=== PATIENT | male | born 1960 | race Caucasian/White ===

== ENCOUNTER 2018-02-28 09:23 | Day surgery (SDC) | payer OTHER ==
[~2018-02-28 09:23] MED LIST: CEFAZOLIN 2 GM/50 ML (PMX) 50 ML IVPB; SOD CHLORIDE 0.9% 1,000 ML IV
[2018-02-28] MEDS ORDERED: DIPHENHYDRAMINE 50 MG INJ IV (11:00)
[2018-02-28] MEDS ORDERED: MIDAZOLAM 1 MG/ML 2 ML INJ IV (11:00)
[2018-02-28] MEDS ORDERED: EPHEDrine SULFATE 50 MG/5 ML SYG IV (11:00)
[2018-02-28] MEDS ORDERED: IPRATROPIUM (NEB) 0.5 MG/2.5 ML AMP HHN (11:00)
[2018-02-28] MEDS ORDERED: MEPERIDINE 25 MG INJ IV (11:00)
[2018-02-28] MEDS ORDERED: OXYCODONE/ACETAMINOPHEN (5/325) TAB PO ×2 (11:00)
[2018-02-28] MEDS ORDERED: hydrALAzine 20 MG INJ IV (11:00)
[2018-02-28] MEDS ORDERED: FENTAnyl 50 MCG/ML VIAL IV ×3 (11:00)
[2018-02-28] MEDS ORDERED: LABETALOL HCL 20MG INJ IV (11:00)
[2018-02-28] MEDS ORDERED: ALBUTEROL 0.083% (NEB) 2.5 MG/3 ML AMP HHN (11:00)
[2018-02-28] MEDS ORDERED: TRIMETHOBENZAMIDE 100 MG/ML VIAL IM (11:00)
[2018-02-28] MEDS ORDERED: HYDROmorphONE 1 MG/5 ML IV SYRINGE IV (11:00)
[2018-02-28] MEDS ORDERED: CEFAZOLIN 1 GM INJ (11:23)
[2018-02-28] MEDS ORDERED: PROPOFOL 20 ML (11:23)
[2018-02-28] MEDS ORDERED: GLYCOPYRROLATE 0.4 MG INJ (11:23)
[2018-02-28] MEDS ORDERED: NEOSTIGMINE 3 MG/3 ML SYRINGE (11:23)
[2018-02-28] MEDS ORDERED: ROCURONIUM 50 MG INJ (11:23)
[2018-02-28] MEDS ORDERED: MIDAZOLAM 1 MG/ML 2 ML INJ (11:24)
[2018-02-28] MEDS ORDERED: DEXAMETHASONE 4 MG/ML 1 ML INJ (11:24)
[2018-02-28] MEDS ORDERED: FENTAnyl 50 MCG/ML VIAL ×2 (11:24→12:29)
[2018-02-28] MEDS ORDERED: ONDANSETRON 4 MG INJ (11:24)
[2018-02-28] MEDS ORDERED: POLYMYXIN/BACITRACIN 1L IRRIG (11:52)
[2018-02-28] MEDS: BUPIVACAINE 0.25% (MPF) 30 ML INJ (12:27)
[2018-02-28] MEDS ORDERED: SUGAMMADEX SODIUM 200 MG/2 ML VIAL IV (12:31)
[2018-02-28] MEDS: HYDROmorphONE 1 MG/5 ML IV SYRINGE IV ×2 (13:04→13:13)
[2018-02-28] MEDS: ONDANSETRON 4 MG INJ IV (13:05)
[2018-02-28] MEDS: HYDROCODONE/APAP (5/325) TAB PO (14:37)
== END 2018-02-28 14:45 | disposition home or self-care (01) ==
LOC: SDS 09:23
DX: K43.6 Other and unspecified ventral hernia with obstruction, without gangrene (principal); E11.9 Type 2 diabetes mellitus without complications
CPT/HCPCS: 49653; 82962